=== PATIENT | female | born 1975 | race Caucasian/White ===

== ENCOUNTER 2020-03-10 19:42 | Emergency (ER) | payer SELFPAY ==
[2020-03-10 19:57] VITALS: BMI 29.9
[2020-03-10 21:08] LABS: Amphetamine Screen Urine Not Detected (Not Detect); Barbiturates, Urine Not Detected (Not Detect); Benzodiazepines Screen Urine Not Detected (Not Detect); Cannabinoid Screen Urine Not Detected (Not Detect); Cocaine Screen Urine Not Detected (Not Detect); Opiate Screen Urine Not Detected (Not Detect); Phencyclidine Screen Urine Not Detected (Not Detect)
--- NOTE | 2020-03-10 22:14 | PC.NURSE ---
MILLICENT faxed and called.
--- NOTE | 2020-03-10 22:28 | ED.PSYCH ---
HPI - Psych General Chief Complaint: Psychiatric Symptoms Stated Complaint: si Time Seen by Provider: 03/10/20 22:28 Source: patient, family and EMS Mode of arrival: EMS History of Present Illness HPI Narrative: This is a 45-year-old female who is brought in via EMS after they were contacted by the family members for concerns that patient is depressed, suicidal, and was noted to be causing harm to herself. Patient states that she lost her father 2 days ago she is very tearful and states that she is angry and that she is ?going through some shit? that she feels is normal given the fact that she lost her father 2 days ago and her mother approximately 1 month ago. She states that she has been admitted over 200 times for psychiatric problems which she lists as being bipolar, schizophrenic and also endorses that she has HIV. She is visiting from [facility]. She denies being suicidal at this time and states she just wants to go home but does states that her family is not answering the phone currently. Related Data Home Medications Medication Instructions Recorded Confirmed aspirin 81 mg PO DAILY 03/10/20 03/10/20 atorvastatin 10 mg PO DAILY 03/10/20 03/10/20 clonazepam 2 mg PO DAILY 03/10/20 03/10/20 empagliflozin [Jardiance] 25 mg PO DAILY 03/10/20 03/10/20 etravirine [Intelence] 200 mg PO BID 03/10/20 03/10/20 gabapentin 600 mg PO BID 03/10/20 03/10/20 linagliptin [Tradjenta] 5 mg PO DAILY 03/10/20 03/10/20 lisinopril 5 mg PO DAILY 03/10/20 03/10/20 lorazepam 03/10/20 lurasidone [Latuda] 20 mg PO DAILY 03/10/20 03/10/20 metformin PO BID 03/10/20 prazosin 2 mg PO DAILY 03/10/20 03/10/20 quetiapine 200 mg PO DAILY 03/10/20 03/10/20 quetiapine 400 mg PO BEDTIME 03/10/20 03/10/20 Allergies Allergy/AdvReac Type Severity Reaction Status Date / Time haloperidol [From Haldol] Allergy Mild TONGUE Unverified 12/02/19 15:43 SWELLS penicillin G [Penicillin G] Allergy Mild RASH Unverified 12/02/19 15:43 amoxicillin [Amoxicillin] Allergy Unknown RASH Unverified 12/02/19 15:43 Review of Systems Review of Systems: Pertinent positives and negatives as stated in HPI 10 point review of systems otherwise negative. [facility] Past Medical History Medical History (Updated 03/11/20 @ 05:05 by Serenity Rojo MD) Bipolar 1 disorder HIV (human immunodeficiency virus infection) Schizophrenia Social History Social History Alcohol intake: never Smoking Status: Never smoker Smoked in Last 30 Days: No Use of substances other than those prescribed or required for medical reasons: No Advance Directives: No Advance Directives Information Provided: Yes Physical Exam Vital Signs: Vital Signs: Last Vital Signs Temp 96.6 F L 03/11/20 07:12 Pulse 102 H 03/11/20 07:12 Resp 16 03/11/20 07:12 BP 127/84 03/11/20 07:12 Pulse Ox 97 03/11/20 07:12 Body Mass Index 29.9 VITAL SIGNS: Reviewed. GENERAL: Mild distress. HEAD: Normocephalic/atraumatic, EYES: PERRLA, EOMI intact EARS: Ext canals without abnormality, TMs non-bulging and non-erythematous NOSE: Nares patent bilateral OROPHARYNX: no oral lesions noted, posterior pharynx clear and non-erythematous without noted tonsillar enlargement/erythema/exudates NECK: Supple, no adenopathy LUNGS: Normal breath sounds. No adventitious sounds or accessory muscle use. CARDIOVASCULAR: Regular rate and rhythm without noted murmurs, no JVD or lower extremity edema. ABDOMEN: Soft, non-tender, non-distended with bowel sounds. No rigidity. No guarding. No palpable masses or hernias noted MUSCULOSKELETAL: No tenderness, deformities, or effusions noted on gross inspection. EXTREMITIES: No cyanosis, clubbing or edema. SKIN: Inspection of the skin reveals multiple superficial lacerations that were self-inflicted NEUROLOGIC: Alert and oriented x 4. Strength and sensation to light touch were grossly intact x 4. PSYCH: Tearful, depressed affect, thought process is intact Course Course Course Narrative: This is a 45-year-old female who is currently consistently undergoing grieving process but does have a significant psychiatric history that will warrant further evaluation by the crisis team. Will pursue obtaining her medications from her family's home with the assistance of HPD if necessary. -labs, UA, urine tox, crisis team evaluation On re-evaluation the patient remains calm and on obtaining collateral information by the nursing staff the patient's mother has stated that she is more than welcome to come back home however we expressed to the patient that we were concerned about her walking home in the middle night with the weather and she agreed to wait for discharge in the morning. She was evaluated by the crisis team who feels that patient is grieving and that she is unlikely to attempt killing herself. On my interactions with the patient, I agree with this assessment as patient continues to states that she has been compliant on all of her medications for years and denies any suicidal ideation and states that she is simply very sad that her father has and so soon after her mother passed. Patient has been determined to be a safe discharge in the morning, but will be re-evaluated just prior to discharge. Reevaluation(s) Reevaluation #1: Patient re-evaluated and was found to be in a calm and cooperative state of mind and continues to deny any thoughts of wanting to harm herself and states that she is simply feeling sad because of the loss of her father. She will be getting an x-ray of her right wrist as she had some complaints pain and afterwards if there is no evidence of fracture she can be discharged home at the discretion of Dr. Byrd. Time: 07:52 MDM - Psych Restraints Face to Face Assessment: Face to Face Assessment: Current Situation: After assessment of the patient, a review of the pertinent medical record and a discussion with nursing staff, I feel the patient requires a restrain intervention. Reaction To: [] Medical Condition: [] Behavioral State: [] Continued Need: [] Lab Data Labs: Lab Results 03/10/20 Range/Units 20:37 Urine Opiates Screen Not Detected (Not Detect) Ur Barbiturates Screen Not Detected (Not Detect) Ur Phencyclidine Scrn Not Detected (Not Detect) Ur Amphetamines Screen Not Detected (Not Detect) U Benzodiazepines Scrn Not Detected (Not Detect) Urine Cocaine Screen Not Detected (Not Detect) U Marijuana (THC) Screen Not Detected (Not Detect) Discharge Plan Discharge Clinical Impression: Grief reaction Patient Disposition: Home, Self-Care Instructions: Grief and Loss (ED) Additional Instructions: Please do not hesitate to return to this emergency department at any time should you begin to feel more overwhelmed or begin feeling like you are having thoughts of hurting yourself. Resume all home medications as prescribed. Prescriptions: No Action gabapentin 600 mg Tablet 600 mg PO BID RF: 0 atorvastatin 10 mg Tablet 10 mg PO DAILY RF: 0 aspirin 81 mg Tablet 81 mg PO DAILY RF: 0 lisinopril 5 mg Tablet 5 mg PO DAILY RF: 0 prazosin 2 mg Capsule 2 mg PO DAILY RF: 0 quetiapine 400 mg Tablet 400 mg PO BEDTIME RF: 0 metformin PO BID RF: 0 quetiapine 200 mg Tablet 200 mg PO DAILY RF: 0 lorazepam 2 mg Tablet RF: 0 clonazepam 2 mg Tablet 2 mg PO DAILY RF: 0 Intelence 200 mg Tablet 200 mg PO BID RF: 0 Tradjenta 5 mg Tablet 5 mg PO DAILY RF: 0 Latuda 20 mg Tablet 20 mg PO DAILY RF: 0 Jardiance 25 mg Tablet 25 mg PO DAILY RF: 0
[2020-03-10] MEDS: clonazePAM 1 MG TABLET PO (23:46)
[2020-03-10] MEDS: QUEtiapine Fumarate 400 MG TABLET PO (23:46)
[2020-03-10 23:48] VITALS: BP 127/84; PULSE 102; RESP 20; TEMP 35.9; O2SAT 97
--- NOTE | 2020-03-11 00:02 | PC.NURSE ---
PT seen by CARE team and cleared for crisis consult.
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
[2020-03-11 07:12] VITALS: BP 127/84; PULSE 102; RESP 16; TEMP 35.9; O2SAT 97
--- NOTE | 2020-03-11 07:24 | XR_ITS ---
EXAMINATION: XR WRIST, RIGHT CLINICAL INFORMATION: Twisted right wrist. Tender navicular area. COMPARISON: None TECHNIQUE: PA, lateral, and oblique views of the right wrist. FINDINGS: There is no visible acute fracture line or dislocation. However there is small bony fragment along the radial styloid process likely subacute or old fracture fragment. There is mild loss of first carpal- metacarpal joint space with small bone fragment, question spur or old injury. No abnormal soft tissue swelling seen. XR/XR wrist RT min 3V IMPRESSION: No visible acute fracture line seen. A small bone fragments adjacent to the lateral scaphoid and superior to the radial styloid process likely subacute to old injury. Versus enthesophyte. Similar findings are seen along the first carpometacarpal joint. No abnormal soft tissue swelling seen.
--- NOTE | 2020-03-11 07:27 | PC.NURSE ---
Report recieved. PT currently resting, reported some hand pain, provider in to assess. Pt denies other complaints.
== END 2020-03-11 08:52 | disposition home or self-care (01) ==
PROVIDERS: Emergency Provider Emergency Medicine Emergency Medical Services
DX: F33.1 Major depressive disorder, recurrent, moderate (principal); R45.851 Suicidal ideations; F43.29 Adjustment disorder with other symptoms; M25.531 Pain in right wrist; Z79.899 Other long term (current) drug therapy; Z21 Asymptomatic human immunodeficiency virus [HIV] infection status; Z79.82 Long term (current) use of aspirin
CPT/HCPCS: 73110; 80307; 99284